=== PATIENT | male | born 2000 ===

== ENCOUNTER 2019-05-05 15:41 | Emergency (ER) | payer BC ==
--- NOTE | 2019-05-05 15:52 | EDM.PDOC ---
ED HPI GENERAL MEDICAL PROBLEM - General Chief Complaint: Lower Extremity Injury/Pain Stated Complaint: LEFT FOOT PAIN Time Seen by Provider: 05/05/19 15:48 - History of Present Illness INITIAL COMMENTS - FREE TEXT/NARRATIVE: HISTORY AND PHYSICAL: History of present illness: Patient's 18-year-old white male presents with a concern of left foot injury patient states he dropped a log on his left foot yesterday and has pain and swelling Review of systems: As per history of present illness and below otherwise all systems reviewed and negative. Past medical history: As per history of present illness and as reviewed below otherwise noncontributory. Surgical history: As per history of present illness and as reviewed below otherwise noncontributory. Social history: No reported history of drug or alcohol abuse. Family history: As per history of present illness and as reviewed below otherwise noncontributory. Physical exam: HEENT: Atraumatic, normocephalic, pupils reactive, negative for conjunctival pallor or scleral icterus, mucous membranes moist, throat clear, neck supple, nontender, trachea midline. Lungs: Clear to auscultation, breath sounds equal bilaterally, chest nontender. Heart: S1S2, regular, negative for clicks, rubs, or JVD. Abdomen: Soft, nondistended, nontender. Negative for masses or hepatosplenomegaly. Negative for costovertebral tenderness. Pelvis: Stable nontender. Genitourinary: Deferred. Rectal: Deferred. Extremities: Patient has pain swelling and ecchymosis over the distal forefoot is no gross deformity CMS neurovascular exams unremarkable. Neuro: Awake, alert, oriented. Cranial nerves II through XII unremarkable. Cerebellum unremarkable. Motor and sensory unremarkable throughout. Exam nonfocal. Diagnostics: X-ray left foot Therapeutics: To be determined Impression: #1 acute left foot injury ( blunt force trauma) Definitive disposition and diagnosis as appropriate pending reevaluation and review of above. - Related Data Allergies Allergy/AdvReac Type Severity Reaction Status Date / Time No Known Allergies Allergy Verified 05/05/19 15:50 Home Meds: Home Meds . [No Known Home Meds] 05/05/19 [History] Review of Systems - Review of Systems Review Of Systems: ROS reveals no pertinent complaints other than HPI. ED EXAM, GENERAL - Physical Exam Exam: See Below (Dictation) Course - Vital Signs Last Recorded V/S: Last Vital Signs Temp 36.3 C 05/05/19 15:47 Pulse 64 05/05/19 15:47 Resp 18 05/05/19 15:47 BP 132/73 05/05/19 15:47 Pulse Ox 98 05/05/19 15:47 - Orders/Labs/Meds Orders: Active Orders 24 hr Category Date Time Status Foot 2V Lt [CR] Stat Exams 05/05/19 15:49 Taken Departure - Departure Time of Disposition: 16:35 Disposition: Home, Self-Care 01 Condition: Good Clinical Impression: Foot fracture - Discharge Information Referrals: PCP,None [Primary Care Provider] - Forms: ED Department Discharge Additional Instructions: The following information is given to patients seen in the emergency department who are being discharged to home. This information is to outline your options for follow-up care. We provide all patients seen in our emergency department with a follow-up referral. The need for follow-up, as well as the timing and circumstances, are variable depending upon the specifics of your emergency department visit. If you don't have a primary care physician on staff, we will provide you with a referral. We always advise you to contact your personal physician following an emergency department visit to inform them of the circumstance of the visit and for follow-up with them and/or the need for any referrals to a consulting specialist. The emergency department will also refer you to a specialist when appropriate. This referral assures that you have the opportunity for followup care with a specialist. All of these measure are taken in an effort to provide you with optimal care, which includes your followup. Under all circumstances we always encourage you to contact your private physician who remains a resource for coordinating your care. When calling for followup care, please make the office aware that this follow-up is from your recent emergency room visit. If for any reason you are refused follow-up, please contact the [facility] emergency department at and asked to speak to the emergency department charge nurse. Jerardo Valverde [facility] - Podiatry [address] [place] [id number] Fax: [phone] Posterior mold crutches as directed Tylenol No. 3 as prescribed return as needed as discussed - My Orders Last 24 Hours: My Active Orders 05/05/19 15:49 Foot 2V Lt [CR] Stat - Assessment/Plan Last 24 Hours: My Active Orders 05/05/19 15:49 Foot 2V Lt [CR] Stat
--- NOTE | 2019-05-05 17:10 | CR ---
Left foot: Two views of the left foot were obtained. Comparison: No previous study. Small bony densities are noted off the IP joint of the first digit and off the DIP joint of the fourth toe. These are felt to be old in age. Slight old erosions are seen off the distal corner of the proximal phalanx of the first toe. Acute fractures are seen within at least the distal shaft of the third and probably fourth metatarsals. Soft tissue swelling is noted. Impression: 1. Nondisplaced fractures within the distal shaft of the third and probably fourth metatarsals. 2. Soft tissue swelling. 3. Other findings as noted above believed to be incidental and old. Diagnostic code #3 MTDD
== END 2019-05-05 17:13 | disposition home or self-care (01) ==
LOC: MW.ED 15:41
DX: S92.335A Nondisplaced fracture of third metatarsal bone, left foot, initial encounter for closed fracture (principal); W22.8XXA Striking against or struck by other objects, initial encounter
CPT/HCPCS: 29515; 73620-26-LT; 73620-LT; 99283; 99283-25